=== PATIENT | male | born 1990 | race African-American/Black ===

== ENCOUNTER 2017-05-11 12:43 | Emergency (ER) | payer OTHER ==
--- NOTE | 2017-05-11 13:55 | ED NURSING NOTES ---
Clinical Report - Nurses [facility] [place] [address] 05/11/2017 12:49 Patient: BETTY LUTZ TRIAGE Triage time 12:52. Acuity: LEVEL 3. Chief Complaint: INJURY TO THE LEFT FOREARM. Alert. --13:05 Eliana Jiménez R.N. 12:55 05/11/17. BP: 129/75. HR: 94. RR: 18. O2 saturation: 95%. Temp: 99.3 F. Pain level now: 8/10. Additional comments: pain is 10/10 if moves arm. --13:05 Eliana Jiménez R.N. Weight: 95.2 kg stated. Height/Length: 67 inches Per Patient. BMI: 32.9. --12:58 Eliana Jiménez R.N. Medications None. --12:57 Eliana Jiménez R.N. Allergies Pollens. --12:57 Eliana Jiménez R.N. History Arrived by private vehicle. Historian: patient. Primary physician (none). ( Pt states that while he was playing soccer, someone hit their knee into his left forearm, and it is very painful to move at all). This occurred just prior to arrival and today. Occurred at an athletic field. Mechanism of injury: a blow. 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 SOCIAL HX: Never smoker. No alcohol use or drug use. LEARNING NEEDS ASSESSMENT: The learning needs assessment revealed no barriers. --13:05 Eliana Jiménez R.N. Interventions ID band on patient. To room. --13:05 Eliana Jiménez R.N. NURSING PROGRESS NOTES 13:11 05/11/17. Cold pack applied. Extremity elevated. Patient identifiers checked. Call light placed in reach. Bed placed in lowest position. --13:11 Eliana Jiménez R.N. 13:11 05/11/17. ( Pt has already been seen by the PA). --13:11 Eliana Jiménez R.N. 13:41 05/11/2017 Motrin PO Tablets 800 mg given. Allergies verified and confirmed 5 rights. --13:46 Michi Flores R.N. DISPOSITION / DISCHARGE Departure time: 14:10. --14:10 Eliana Jiménez R.N. 14:10 05/11/17. BP: 111/61. HR: 87. RR: 18. O2 saturation: 98%. Temp: deferred. Pain level now: 03/26. --14:11 Eliana Jiménez R.N. 14:10. Condition at departure: improved. No learning barriers present. Discharge instructions provided and reviewed with the patient and spouse. Reviewed medication(s) information. Prescription(s) given to the patient. Reviewed referral to family practice and an orthopedic surgeon for followup. Verbalized understanding. Written instructions provided. The patient was discharged home and accompanied by spouse. He left the Emergency Department ambulatory and via private vehicle. Spouse driving. --14:13 Eliana Jiménez R.N. late entry -. ( Sugar tong splint was applied by oil heat technician, [facility] intact. Arm sling placed on patient.). --18:40 Eliana Jiménez R.N. Locked/Released at 05/15/2017 18:40 by Eliana Jiménez R.N.
--- NOTE | 2017-05-11 13:55 | ED NURSING NOTES ---
Clinical Report - Nurses [facility] [place] [address] 05/11/2017 12:49 Patient: BETTY LUTZ TRIAGE Triage time 12:52. Acuity: LEVEL 3. Chief Complaint: INJURY TO THE LEFT FOREARM. Alert. --13:05 Eliana Jiménez R.N. 12:55 05/11/17. BP: 129/75. HR: 94. RR: 18. O2 saturation: 95%. Temp: 99.3 F. Pain level now: 8/10. Additional comments: pain is 10/10 if moves arm. --13:05 Eliana Jiménez R.N. Weight: 95.2 kg stated. Height/Length: 67 inches Per Patient. BMI: 32.9. --12:58 Eliana Jiménez R.N. Medications None. --12:57 Eliana Jiménez R.N. Allergies Pollens. --12:57 Eliana Jiménez R.N. History Arrived by private vehicle. Historian: patient. Primary physician (none). ( Pt states that while he was playing soccer, someone hit their knee into his left forearm, and it is very painful to move at all). This occurred just prior to arrival and today. Occurred at an athletic field. Mechanism of injury: a blow. 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 SOCIAL HX: Never smoker. No alcohol use or drug use. LEARNING NEEDS ASSESSMENT: The learning needs assessment revealed no barriers. --13:05 Eliana Jiménez R.N. Interventions ID band on patient. To room. --13:05 Eliana Jiménez R.N. NURSING PROGRESS NOTES 13:11 05/11/17. Cold pack applied. Extremity elevated. Patient identifiers checked. Call light placed in reach. Bed placed in lowest position. --13:11 Eliana Jiménez R.N. 13:11 05/11/17. ( Pt has already been seen by the PA). --13:11 Eliana Jiménez R.N. 13:41 05/11/2017 Motrin PO Tablets 800 mg given. Allergies verified and confirmed 5 rights. --13:46 Michi Flores R.N. DISPOSITION / DISCHARGE Departure time: 14:10. --14:10 Eliana Jiménez R.N. 14:10 05/11/17. BP: 111/61. HR: 87. RR: 18. O2 saturation: 98%. Temp: deferred. Pain level now: 03/26. --14:11 Eliana Jiménez R.N. 14:10. Condition at departure: improved. No learning barriers present. Discharge instructions provided and reviewed with the patient and spouse. Reviewed medication(s) information. Prescription(s) given to the patient. Reviewed referral to family practice and an orthopedic surgeon for followup. Verbalized understanding. Written instructions provided. The patient was discharged home and accompanied by spouse. He left the Emergency Department ambulatory and via private vehicle. Spouse driving. --14:13 Eliana Jiménez R.N. late entry -. ( Sugar tong splint was applied by video game repair technician, [facility] intact. Arm sling placed on patient.). --18:40 Eliana Jiménez R.N. Locked/Released at 05/15/2017 18:40 by Eliana Jiménez R.N.
--- NOTE | 2017-05-11 13:55 | ED ORDER SUMMARY ---
..... Patient: BETTY LUTZ OrderSheet [facility] VisitID: [id number] [address] [place] [address] 26y, M Registration Date/Time: 05/11/2017 ORDER SHEET Weight: 95.2 kg (stated) Allergies: Pollens GENERAL ORDERS: Forearm Left Urgent (13:06 05/11/2017 EKoroleva P.A.-C) (Ack 13:07 Janak) (13:26 LSullivan R.N.) Ice (13:09 05/11/2017 EKoroleva P.A.-C) (13:26 LSullivan R.N.) Splint (UE) (Left) (Sugar Tong) (13:40 05/11/2017 EKoroleva P.A.-C) (Ack 13:55 MWinterer R.N.) (18:39 LSullivan R.N.) MEDICATION ORDERS: Motrin PO 800 mg (NOW) (13:40 05/11/2017 EKoroleva P.A.-C) (13:46 JRomanelli R.N.) IV FLUIDS: ORDER SHEET NOTES: [Electronically signed by Haylee Patiño PJermanAJerman-C (14:01 05/11/2017)] [Electronically signed by Eliana Jiménez R.N. (18:40 05/15/2017)] [Electronically locked/signed by Eliana Jiménez R.N. (18:40 05/15/2017)]
--- NOTE | 2017-05-11 13:55 | ED CLINICAL REPORT ---
Clinical Report - Physicians/Mid Levels [facility] [address] [place] [place] [address] 05/11/2017 12:49 [id number] Time Seen: 13:07 May 11 2017. Arrived- By private vehicle. Historian- patient. HISTORY OF PRESENT ILLNESS Chief Complaint: Injury to left forearm. The injury happened just prior to arrival. Occurred at an athletic field. The patient sustained a direct blow. Patient is experiencing moderate pain. Patient denies injury to the head or neck. ( patient was playing sports, when he sustained a blow to his arm which was on his chest at that time, from a knee of another player. Denies any shortness of breath or abdominal pain currently. Patient is right-hand dominant. Denies any prior injury to the left forearm. Pain worsens with movement.). REVIEW OF SYSTEMS No tingling or skin laceration. All systems otherwise negative, except as recorded above. PAST HISTORY The patient's dominant hand is the right. He has not had a prior injury to the same area. SOCIAL HISTORY Never smoker. No alcohol use or drug use. PHYSICAL EXAM Appearance: Alert. Head: Head atraumatic. ENT: Ears normal. CVS: Normal heart rate and rhythm. Heart sounds normal. Respiratory: No respiratory distress. No respiratory distress. No decreased air movement, chest wall injury or accessory muscle use. Abdomen: No visible injury. Soft. No abdominal tenderness. The bowel sounds are not abnormal. Skin: Skin warm. Normal skin color. Extremities: Left elbow. No tenderness or laceration. Left forearm: mild tenderness and swelling located in the mid forearm. Neurovascular intact distally. No ecchymosis, foreign body or deformity. Left wrist. Neurovascular intact distally. No tenderness or laceration. Left hand. No erythema or tenderness. Neuro, Vascular and Tendons: Vascular status intact. Motor intact. Neuro: Oriented X 3. No motor deficit. PROGRESS AND PROCEDURES Splint Application: Time: 14:00 May 11 2017. Fiberglass sugar tong splint and sling applied to left forearm and arm. Splint applied by arina with direct supervision by me. Reassessed extremity following splint application. Neurovascular intact. Follow-up recommended within 5 days. Course of Care: Patient with good distal sensation and range of motion, no signs of compromise, no signs of open fracture. Patient given Motrin in the emergency department. Stable. Follow palpation. No other injuries abdomen soft non tender, no difficulty with breathing. 05/11/2017 12:55 BP: 129/75. HR: 94. RR: 18. O2 saturation: 95%. Temp: 99.3 F. Pain level now: 8/10. Patient is stable. Patient/family counseled. Disposition: Discharged. Condition: good. CLINICAL IMPRESSION Displaced transverse fracture of the left ulna INSTRUCTIONS Apply ice. Elevate affected areas above chest level. Prescription Medications: Hydrocodone/APAP 5mg / 325mg: take 1 orally every 6 hours as needed for pain. Dispense twelve (12). No refill. OTC Medications: Motrin IB 200 mg (available over the counter): take 4 orally every 8 hours for 5 days, as needed for pain Understanding of the discharge instructions verbalized by patient. Follow-up with: [facility], , [address], [facility], [id number] Follow up. Call for the next available appointment. (Electronically signed by Haylee Patiño P.A.-C 05/11/2017 14:01)
--- NOTE | 2017-05-11 13:55 | ED ORDER SUMMARY ---
..... Patient: BETTY LUTZ OrderSheet [facility] VisitID: [id number] [address] [place] [address] 26y, M Registration Date/Time: 05/11/2017 ORDER SHEET Weight: 95.2 kg (stated) Allergies: Pollens GENERAL ORDERS: Forearm Left Urgent (13:06 05/11/2017 EKoroleva P.A.-C) (Ack 13:07 Janak) (13:26 LSullivan R.N.) Ice (13:09 05/11/2017 EKoroleva P.A.-C) (13:26 LSullivan R.N.) Splint (UE) (Left) (Sugar Tong) (13:40 05/11/2017 EKoroleva P.A.-C) (Ack 13:55 MWinterer R.N.) (18:39 LSullivan R.N.) MEDICATION ORDERS: Motrin PO 800 mg (NOW) (13:40 05/11/2017 EKoroleva P.A.-C) (13:46 JRomanelli R.N.) IV FLUIDS: ORDER SHEET NOTES: [Electronically signed by Haylee Patiño PJermanAJerman-C (14:01 05/11/2017)] [Electronically signed by Eliana Jiménez R.N. (18:40 05/15/2017)] [Electronically locked/signed by Eliana Jiménez R.N. (18:40 05/15/2017)]
--- NOTE | 2017-05-11 13:55 | ED CLINICAL REPORT ---
Clinical Report - Physicians/Mid Levels [facility] [address] [place] [address] 05/11/2017 12:49 [id number] Time Seen: 13:07 May 11 2017. Arrived- By private vehicle. Historian- patient. HISTORY OF PRESENT ILLNESS Chief Complaint: Injury to left forearm. The injury happened just prior to arrival. Occurred at an athletic field. The patient sustained a direct blow. Patient is experiencing moderate pain. Patient denies injury to the head or neck. ( patient was playing sports, when he sustained a blow to his arm which was on his chest at that time, from a knee of another player. Denies any shortness of breath or abdominal pain currently. Patient is right-hand dominant. Denies any prior injury to the left forearm. Pain worsens with movement.). REVIEW OF SYSTEMS No tingling or skin laceration. All systems otherwise negative, except as recorded above. PAST HISTORY The patient's dominant hand is the right. He has not had a prior injury to the same area. SOCIAL HISTORY Never smoker. No alcohol use or drug use. PHYSICAL EXAM Appearance: Alert. Head: Head atraumatic. ENT: Ears normal. CVS: Normal heart rate and rhythm. Heart sounds normal. Respiratory: No respiratory distress. No respiratory distress. No decreased air movement, chest wall injury or accessory muscle use. Abdomen: No visible injury. Soft. No abdominal tenderness. The bowel sounds are not abnormal. Skin: Skin warm. Normal skin color. Extremities: Left elbow. No tenderness or laceration. Left forearm: mild tenderness and swelling located in the mid forearm. Neurovascular intact distally. No ecchymosis, foreign body or deformity. Left wrist. Neurovascular intact distally. No tenderness or laceration. Left hand. No erythema or tenderness. Neuro, Vascular and Tendons: Vascular status intact. Motor intact. Neuro: Oriented X 3. No motor deficit. PROGRESS AND PROCEDURES Splint Application: Time: 14:00 May 11 2017. Fiberglass sugar tong splint and sling applied to left forearm and arm. Splint applied by arina with direct supervision by me. Reassessed extremity following splint application. Neurovascular intact. Follow-up recommended within 5 days. Course of Care: Patient with good distal sensation and range of motion, no signs of compromise, no signs of open fracture. Patient given Motrin in the emergency department. Stable. Follow palpation. No other injuries abdomen soft non tender, no difficulty with breathing. 05/11/2017 12:55 BP: 129/75. HR: 94. RR: 18. O2 saturation: 95%. Temp: 99.3 F. Pain level now: 8/10. Patient is stable. Patient/family counseled. Disposition: Discharged. Condition: good. CLINICAL IMPRESSION Displaced transverse fracture of the left ulna INSTRUCTIONS Apply ice. Elevate affected areas above chest level. Prescription Medications: Hydrocodone/APAP 5mg / 325mg: take 1 orally every 6 hours as needed for pain. Dispense twelve (12). No refill. OTC Medications: Motrin IB 200 mg (available over the counter): take 4 orally every 8 hours for 5 days, as needed for pain Understanding of the discharge instructions verbalized by patient. Follow-up with: [facility], , [address], [facility], [id number] Follow up. Call for the next available appointment. (Electronically signed by Haylee Patiño P.A.-C 05/11/2017 14:01)
--- NOTE | 2017-05-11 15:44 | DIAGNOSTIC IMAGING REPORT ---
PROCEDURE: XR FOREARM - LEFT INDICATION: TRAUMA/INJURY TECHNIQUE: Two views of the left forearm COMPARISON: None. FINDINGS: Normal mineralization. Mildly comminuted, mildly displaced fracture of the mid to distal ulnar diaphysis. Distal fracture fragment is displaced by about one half shaft width towards the ventral aspect. The transverse alignment is normal. Elbow and wrist alignment appears grossly normal. Moderate overlying soft tissue swelling. No radiodense foreign bodies. IMPRESSION: 1. Mildly comminuted, mildly displaced mid to distal ulnar diaphyseal fracture.
--- NOTE | 2017-05-15 18:40 | ED DISCHARGE INSTRUCTIONS ---
Patient: BETTY LUTZ General Instructions [facility] VisitID: [id number] [address] [place] [address] 26y, M Registration Date/Time: 05/11/2017 Displaced transverse fracture of the left ulna INSTRUCTIONS Apply ice. Elevate affected areas above chest level. Prescription Medications: Hydrocodone/APAP 5mg / 325mg: take 1 orally every 6 hours as needed for pain. Dispense twelve (12). No refill. OTC Medications: Motrin IB 200 mg (available over the counter): take 4 orally every 8 hours for 5 days, as needed for pain Understanding of the discharge instructions verbalized by patient. Follow-up with: [facility], , [address], [place], [address] Follow up. Call for the next available appointment. ADDITIONAL INFORMATION Fracture: Forearm (Radius & Ulna) (No Reduction Needed) You have a break (fracture) of both bones in the forearm (radiusand ulna). The bones are not out of place and will not need to be set (reduced). This fracture usually takes 4-6 weeks to heal. Initial treatment is with a splint or cast. Home Care: Keep your arm elevated to reduce pain and swelling. When sitting or lying down elevate your arm above the level of your heart. You can do this by placing your arm on a pillow that rests on your chest or on a pillow at your side. This is most important during the first 48 hours after injury. Apply an ice pack (ice cubes in a plastic bag, wrapped in a towel) over the injured area for 20 minutes every 1-2 hours the first day. You can place the ice pack inside the sling and directly over the splint/cast. Continue with ice packs 3-4 times a day for the next two days, then as needed for the relief of pain and swelling. Keep the cast/splint completely dry at all times. Bathe with your cast/splint out of the water, protected with a large plastic bag, rubber-banded at the top end. If a fiberglass splint/cast gets wet, you can dry it with a hair-dryer. You may use acetaminophen (Tylenol) or ibuprofen (Motrin, Advil) to control pain, unless another pain medicine was prescribed. [NOTE: If you have chronic liver or kidney disease or ever had a stomach ulcer or GI bleeding, talk with your doctor before using these medicines.] Follow Up with your doctor in one week, or as advised by our staff, to be sure the bone is healing properly. If a splint was applied, it will be changed to a cast during your follow-up visit. [NOTE: If x-rays were taken, they will be reviewed by a radiologist. You will be notified if there are any new findings that may affect your care.] Get Prompt Medical Attention if any of the following occur: The plaster cast or splint becomes wet or soft The fiberglass cast or splint remains wet for more than 24 hours Increased tightness or pain under the cast or splint Fingers become swollen, cold, blue, numb or tingly Hydrocodone Bitartrate, Acetaminophen Oral tablet What is this medicine? ACETAMINOPHEN; HYDROCODONE (a set a MARIANO ronda fen; edi droe KOE done) is a pain reliever. It is used to treat mild to moderate pain. How should I use this medicine? Take this medicine by mouth. Swallow it with a full glass of water. Follow the directions on the prescription label. If the medicine upsets your stomach, take the medicine with food or milk. Do not take more than you are told to take. Talk to your hairspring assembler regarding the use of this medicine in children. This medicine is not approved for use in children. What side effects may I notice from receiving this medicine? Side effects that you should report to your doctor or health childbirth and infant care teacher as soon as possible: allergic reactions like skin rash, itching or hives, swelling of the face, lips, or tongue breathing problems confusion feeling faint or lightheaded, falls stomach pain yellowing of the eyes or skin Side effects that usually do not require medical attention (report to your doctor or health childbirth and infant care teacher if they continue or are bothersome): nausea, vomiting stomach upset What may interact with this medicine? alcohol antihistamines isoniazid medicines for depression, anxiety, or psychotic disturbances medicines for sleep muscle relaxants naltrexone narcotic medicines (opiates) for pain phenobarbital ritonavir tramadol What if I miss a dose? If you miss a dose, take it as soon as you can. If it is almost time for your next dose, take only that dose. Do not take double or extra doses. Where should I keep my medicine? Keep out of the reach of children. This medicine can be abused. Keep your medicine in a safe place to protect it from theft. Do not share this medicine with anyone. Selling or giving away this medicine is dangerous and against the law. Store at room temperature between 15 and 30 degrees C (59 and 86 degrees F). Protect from light. Keep container tightly closed. Throw away any unused medicine after the expiration date. Discard unused medicine and used packaging carefully. Pets and children can be harmed if they find used or lost packages. What should I tell my health care provider before I take this medicine? They need to know if you have any of these conditions: brain tumor Crohn's disease, inflammatory bowel disease, or ulcerative colitis drink more than 3 alcohol-containing drinks per day drug abuse or addiction head injury heart or circulation problems kidney disease or problems going to the bathroom liver disease lung disease, asthma, or breathing problems an unusual or allergic reaction to acetaminophen, hydrocodone, other opioid analgesics, other medicines, foods, dyes, or preservatives or trying to get breast-feeding What should I watch for while using this medicine? Tell your doctor or health childbirth and infant care teacher if your pain does not go away, if it gets worse, or if you have new or a different type of pain. You may develop tolerance to the medicine. Tolerance means that you will need a higher dose of the medicine for pain relief. Tolerance is normal and is expected if you take the medicine for a long time. Do not suddenly stop taking your medicine because you may develop a severe reaction. Your body becomes used to the medicine. This does NOT mean you are addicted. Addiction is a behavior related to getting and using a drug for a non-medical reason. If you have pain, you have a medical reason to take pain medicine. Your doctor will tell you how much medicine to take. If your doctor wants you to stop the medicine, the dose will be slowly lowered over time to avoid any side effects. You may get drowsy or dizzy when you first start taking the medicine or change doses. Do not drive, use machinery, or do anything that may be dangerous until you know how the medicine affects you. Stand or sit up slowly. There are different types of narcotic medicines (opiates) for pain. If you take more than one type at the same time, you may have more side effects. Give your health care provider a list of all medicines you use. Your doctor will tell you how much medicine to take. Do not take more medicine than directed. Call emergency for help if you have problems breathing. The medicine will cause constipation. Try to have a bowel movement at least every 2 to 3 days. If you do not have a bowel movement for 3 days, call your doctor or health childbirth and infant care teacher. Too much acetaminophen can be very dangerous. Do not take Tylenol (acetaminophen) or medicines that contain acetaminophen with this medicine. Many non-prescription medicines contain acetaminophen. Always read the labels carefully. Ibuprofen Oral tablet What is this medicine? IBUPROFEN (eye BYOO proe fen) is a non-steroidal anti-inflammatory drug (NSAID). It is used for dental pain, fever, headaches or migraines, osteoarthritis, rheumatoid arthritis, or painful monthly periods. It can also relieve minor aches and pains caused by a cold, flu, or sore throat. How should I use this medicine? Take this medicine by mouth with a glass of water. Follow the directions on the prescription label. Take this medicine with food if your stomach gets upset. Try to not lie down for at least 10 minutes after you take the medicine. Take your medicine at regular intervals. Do not take your medicine more often than directed. A special MedGuide will be given to you by the pharmacist with each prescription and refill. Be sure to read this information carefully each time. Talk to your hairspring assembler regarding the use of this medicine in children. Special care may be needed. What side effects may I notice from receiving this medicine? Side effects that you should report to your doctor or health childbirth and infant care teacher as soon as possible: allergic reactions like skin rash, itching or hives, swelling of the face, lips, or tongue black or bloody stools, blood in the urine or in vomit breathing problems changes in vision chest pain general ill feeling or flu-like symptoms nausea or vomiting redness, blistering, peeling or loosening of the skin, including inside the mouth slurred speech or weakness on one side of the body stomach pain unexplained weight gain or swelling unusually weak or tired yellowing of eyes or skin Side effects that usually do not require medical attention (report to your doctor or health childbirth and infant care teacher if they continue or are bothersome): constipation or diarrhea dizziness gas or heartburn stomach upset What may interact with this medicine? Do not take this medicine with any of the following medications: cidofovir ketorolac methotrexate pemetrexed This medicine may also interact with the following medications: alcohol aspirin diuretics lithium other drugs for inflammation like prednisone warfarin What if I miss a dose? If you miss a dose, take it as soon as you can. If it is almost time for your next dose, take only that dose. Do not take double or extra doses. Where should I keep my medicine? Keep out of the reach of children. Store at room temperature between 15 and 30 degrees C (59 and 86 degrees F). Keep container tightly closed. Throw away any unused medicine after the expiration date. What should I tell my health care provider before I take this medicine? They need to know if you have any of these conditions: asthma cigarette smoker drink more than 3 alcohol containing drinks a day heart disease or circulation problems such as heart failure or leg edema (fluid retention) high blood pressure kidney disease liver disease stomach bleeding or ulcers an unusual or allergic reaction to ibuprofen, aspirin, other NSAIDS, other medicines, foods, dyes, or preservatives or trying to get breast-feeding What should I watch for while using this medicine? Tell your doctor or healthcare professional if your symptoms do not start to get better or if they get worse. This medicine does not prevent heart attack or stroke. In fact, this medicine may increase the chance of a heart attack or stroke. The chance may increase with longer use of this medicine and in people who have heart disease. If you take aspirin to prevent heart attack or stroke, talk with your doctor or health childbirth and infant care teacher. Do not take other medicines that contain aspirin, ibuprofen, or naproxen with this medicine. Side effects such as stomach upset, nausea, or ulcers may be more likely to occur. Many medicines available without a prescription should not be taken with this medicine. This medicine can cause ulcers and bleeding in the stomach and intestines at any time during treatment. Ulcers and bleeding can happen without warning symptoms and can cause . To reduce your risk, do not smoke cigarettes or drink alcohol while you are taking this medicine. You may get drowsy or dizzy. Do not drive, use machinery, or do anything that needs mental alertness until you know how this medicine affects you. Do not stand or sit up quickly, especially if you are an older patient. This reduces the risk of dizzy or fainting spells. This medicine can cause you to bleed more easily. Try to avoid damage to your teeth and gums when you brush or floss your teeth. You have been given the following additional information: Radius And Ulna Fx, No Reduction Required Hydrocodone Bitartrate, Acetaminophen Oral tablet Ibuprofen Oral tablet (Electronically signed by Haylee Patiño P.A.-C 05/11/2017 14:01)
--- NOTE | 2017-05-15 18:40 | ED DISCHARGE INSTRUCTIONS ---
Patient: BETTY LUTZ General Instructions [facility] VisitID: [id number] [address] [place] [address] 26y, M Registration Date/Time: 05/11/2017 Displaced transverse fracture of the left ulna INSTRUCTIONS Apply ice. Elevate affected areas above chest level. Prescription Medications: Hydrocodone/APAP 5mg / 325mg: take 1 orally every 6 hours as needed for pain. Dispense twelve (12). No refill. OTC Medications: Motrin IB 200 mg (available over the counter): take 4 orally every 8 hours for 5 days, as needed for pain Understanding of the discharge instructions verbalized by patient. Follow-up with: [facility], , [address], [place], [id number] Follow up. Call for the next available appointment. ADDITIONAL INFORMATION Fracture: Forearm (Radius & Ulna) (No Reduction Needed) You have a break (fracture) of both bones in the forearm (radiusand ulna). The bones are not out of place and will not need to be set (reduced). This fracture usually takes 4-6 weeks to heal. Initial treatment is with a splint or cast. Home Care: Keep your arm elevated to reduce pain and swelling. When sitting or lying down elevate your arm above the level of your heart. You can do this by placing your arm on a pillow that rests on your chest or on a pillow at your side. This is most important during the first 48 hours after injury. Apply an ice pack (ice cubes in a plastic bag, wrapped in a towel) over the injured area for 20 minutes every 1-2 hours the first day. You can place the ice pack inside the sling and directly over the splint/cast. Continue with ice packs 3-4 times a day for the next two days, then as needed for the relief of pain and swelling. Keep the cast/splint completely dry at all times. Bathe with your cast/splint out of the water, protected with a large plastic bag, rubber-banded at the top end. If a fiberglass splint/cast gets wet, you can dry it with a hair-dryer. You may use acetaminophen (Tylenol) or ibuprofen (Motrin, Advil) to control pain, unless another pain medicine was prescribed. [NOTE: If you have chronic liver or kidney disease or ever had a stomach ulcer or GI bleeding, talk with your doctor before using these medicines.] Follow Up with your doctor in one week, or as advised by our staff, to be sure the bone is healing properly. If a splint was applied, it will be changed to a cast during your follow-up visit. [NOTE: If x-rays were taken, they will be reviewed by a radiologist. You will be notified if there are any new findings that may affect your care.] Get Prompt Medical Attention if any of the following occur: The plaster cast or splint becomes wet or soft The fiberglass cast or splint remains wet for more than 24 hours Increased tightness or pain under the cast or splint Fingers become swollen, cold, blue, numb or tingly Hydrocodone Bitartrate, Acetaminophen Oral tablet What is this medicine? ACETAMINOPHEN; HYDROCODONE (a set a MARIANO ronda fen; edi droe KOE done) is a pain reliever. It is used to treat mild to moderate pain. How should I use this medicine? Take this medicine by mouth. Swallow it with a full glass of water. Follow the directions on the prescription label. If the medicine upsets your stomach, take the medicine with food or milk. Do not take more than you are told to take. Talk to your city routeman regarding the use of this medicine in children. This medicine is not approved for use in children. What side effects may I notice from receiving this medicine? Side effects that you should report to your doctor or health child care giver as soon as possible: allergic reactions like skin rash, itching or hives, swelling of the face, lips, or tongue breathing problems confusion feeling faint or lightheaded, falls stomach pain yellowing of the eyes or skin Side effects that usually do not require medical attention (report to your doctor or health child care giver if they continue or are bothersome): nausea, vomiting stomach upset What may interact with this medicine? alcohol antihistamines isoniazid medicines for depression, anxiety, or psychotic disturbances medicines for sleep muscle relaxants naltrexone narcotic medicines (opiates) for pain phenobarbital ritonavir tramadol What if I miss a dose? If you miss a dose, take it as soon as you can. If it is almost time for your next dose, take only that dose. Do not take double or extra doses. Where should I keep my medicine? Keep out of the reach of children. This medicine can be abused. Keep your medicine in a safe place to protect it from theft. Do not share this medicine with anyone. Selling or giving away this medicine is dangerous and against the law. Store at room temperature between 15 and 30 degrees C (59 and 86 degrees F). Protect from light. Keep container tightly closed. Throw away any unused medicine after the expiration date. Discard unused medicine and used packaging carefully. Pets and children can be harmed if they find used or lost packages. What should I tell my health care provider before I take this medicine? They need to know if you have any of these conditions: brain tumor Crohn's disease, inflammatory bowel disease, or ulcerative colitis drink more than 3 alcohol-containing drinks per day drug abuse or addiction head injury heart or circulation problems kidney disease or problems going to the bathroom liver disease lung disease, asthma, or breathing problems an unusual or allergic reaction to acetaminophen, hydrocodone, other opioid analgesics, other medicines, foods, dyes, or preservatives or trying to get breast-feeding What should I watch for while using this medicine? Tell your doctor or health child care giver if your pain does not go away, if it gets worse, or if you have new or a different type of pain. You may develop tolerance to the medicine. Tolerance means that you will need a higher dose of the medicine for pain relief. Tolerance is normal and is expected if you take the medicine for a long time. Do not suddenly stop taking your medicine because you may develop a severe reaction. Your body becomes used to the medicine. This does NOT mean you are addicted. Addiction is a behavior related to getting and using a drug for a non-medical reason. If you have pain, you have a medical reason to take pain medicine. Your doctor will tell you how much medicine to take. If your doctor wants you to stop the medicine, the dose will be slowly lowered over time to avoid any side effects. You may get drowsy or dizzy when you first start taking the medicine or change doses. Do not drive, use machinery, or do anything that may be dangerous until you know how the medicine affects you. Stand or sit up slowly. There are different types of narcotic medicines (opiates) for pain. If you take more than one type at the same time, you may have more side effects. Give your health care provider a list of all medicines you use. Your doctor will tell you how much medicine to take. Do not take more medicine than directed. Call emergency for help if you have problems breathing. The medicine will cause constipation. Try to have a bowel movement at least every 2 to 3 days. If you do not have a bowel movement for 3 days, call your doctor or health child care giver. Too much acetaminophen can be very dangerous. Do not take Tylenol (acetaminophen) or medicines that contain acetaminophen with this medicine. Many non-prescription medicines contain acetaminophen. Always read the labels carefully. Ibuprofen Oral tablet What is this medicine? IBUPROFEN (eye BYOO proe fen) is a non-steroidal anti-inflammatory drug (NSAID). It is used for dental pain, fever, headaches or migraines, osteoarthritis, rheumatoid arthritis, or painful monthly periods. It can also relieve minor aches and pains caused by a cold, flu, or sore throat. How should I use this medicine? Take this medicine by mouth with a glass of water. Follow the directions on the prescription label. Take this medicine with food if your stomach gets upset. Try to not lie down for at least 10 minutes after you take the medicine. Take your medicine at regular intervals. Do not take your medicine more often than directed. A special MedGuide will be given to you by the pharmacist with each prescription and refill. Be sure to read this information carefully each time. Talk to your city routeman regarding the use of this medicine in children. Special care may be needed. What side effects may I notice from receiving this medicine? Side effects that you should report to your doctor or health child care giver as soon as possible: allergic reactions like skin rash, itching or hives, swelling of the face, lips, or tongue black or bloody stools, blood in the urine or in vomit breathing problems changes in vision chest pain general ill feeling or flu-like symptoms nausea or vomiting redness, blistering, peeling or loosening of the skin, including inside the mouth slurred speech or weakness on one side of the body stomach pain unexplained weight gain or swelling unusually weak or tired yellowing of eyes or skin Side effects that usually do not require medical attention (report to your doctor or health child care giver if they continue or are bothersome): constipation or diarrhea dizziness gas or heartburn stomach upset What may interact with this medicine? Do not take this medicine with any of the following medications: cidofovir ketorolac methotrexate pemetrexed This medicine may also interact with the following medications: alcohol aspirin diuretics lithium other drugs for inflammation like prednisone warfarin What if I miss a dose? If you miss a dose, take it as soon as you can. If it is almost time for your next dose, take only that dose. Do not take double or extra doses. Where should I keep my medicine? Keep out of the reach of children. Store at room temperature between 15 and 30 degrees C (59 and 86 degrees F). Keep container tightly closed. Throw away any unused medicine after the expiration date. What should I tell my health care provider before I take this medicine? They need to know if you have any of these conditions: asthma cigarette smoker drink more than 3 alcohol containing drinks a day heart disease or circulation problems such as heart failure or leg edema (fluid retention) high blood pressure kidney disease liver disease stomach bleeding or ulcers an unusual or allergic reaction to ibuprofen, aspirin, other NSAIDS, other medicines, foods, dyes, or preservatives or trying to get breast-feeding What should I watch for while using this medicine? Tell your doctor or healthcare professional if your symptoms do not start to get better or if they get worse. This medicine does not prevent heart attack or stroke. In fact, this medicine may increase the chance of a heart attack or stroke. The chance may increase with longer use of this medicine and in people who have heart disease. If you take aspirin to prevent heart attack or stroke, talk with your doctor or health child care giver. Do not take other medicines that contain aspirin, ibuprofen, or naproxen with this medicine. Side effects such as stomach upset, nausea, or ulcers may be more likely to occur. Many medicines available without a prescription should not be taken with this medicine. This medicine can cause ulcers and bleeding in the stomach and intestines at any time during treatment. Ulcers and bleeding can happen without warning symptoms and can cause . To reduce your risk, do not smoke cigarettes or drink alcohol while you are taking this medicine. You may get drowsy or dizzy. Do not drive, use machinery, or do anything that needs mental alertness until you know how this medicine affects you. Do not stand or sit up quickly, especially if you are an older patient. This reduces the risk of dizzy or fainting spells. This medicine can cause you to bleed more easily. Try to avoid damage to your teeth and gums when you brush or floss your teeth. You have been given the following additional information: Radius And Ulna Fx, No Reduction Required Hydrocodone Bitartrate, Acetaminophen Oral tablet Ibuprofen Oral tablet (Electronically signed by Haylee Patiño P.A.-C 05/11/2017 14:01)
--- NOTE | 2017-05-15 18:41 | ED MED RECONCILIATION SUMMARY ---
Patient: BETTY LUTZ Medication Reconciliation Report [facility] VisitID: [id number] [address] [place] [address] 26y, M Registration Date/Time: 05/11/2017 Weight: 95.2 kg Height/Length: 67 in. BMI: 32.9 ALLERGIES: Pollens The patient's Home Medications are listed below: NONE. The source(s) of the original Home Medication information: Not obtained. The following Medications were given to the patient in the Emergency Department: Motrin [PO] PO 800 mg, administered: 05/11/2017 1:41:00 PM The following Medications were prescribed to the patient: Motrin IB 200 mg (available over the counter): take 4 orally every 8 hours for 5 days, as needed for pain -- Haylee Patiño, P.A.-C Hydrocodone/APAP 5mg / 325mg: take 1 orally every 6 hours as needed for pain. Dispense twelve (12). No refill. -- Haylee Patiño, P.A.-C
--- NOTE | 2017-05-15 18:41 | ED MAR SUMMARY ---
..... Medication Administration Record [facility] [address] [place] [address] Patient: BETTY LUTZ Visit ID: [id number] 26y, M Weight: 95.2 kg Height/Length: 67 in BMI: 32.9 ALLERGIES: Pollens Given 13:41 05/11/2017 Michi Flores R.N. Medication Administered: MOTRIN [PO], Dose: 800 mg Tablets PO. Medication Ordered: Motrin PO 800 mg (NOW).
--- NOTE | 2017-05-15 18:41 | ED MAR SUMMARY ---
..... Medication Administration Record [facility] [address] [place] [address] Patient: BETTY LUTZ Visit ID: [id number] 26y, M Weight: 95.2 kg Height/Length: 67 in BMI: 32.9 ALLERGIES: Pollens Given 13:41 05/11/2017 Michi Flores R.N. Medication Administered: MOTRIN [PO], Dose: 800 mg Tablets PO. Medication Ordered: Motrin PO 800 mg (NOW).
--- NOTE | 2017-05-15 18:41 | ED MED RECONCILIATION SUMMARY ---
Patient: BETTY LUTZ Medication Reconciliation Report [facility] VisitID: [id number] [address] [place] [address] 26y, M Registration Date/Time: 05/11/2017 Weight: 95.2 kg Height/Length: 67 in. BMI: 32.9 ALLERGIES: Pollens The patient's Home Medications are listed below: NONE. The source(s) of the original Home Medication information: Not obtained. The following Medications were given to the patient in the Emergency Department: Motrin [PO] PO 800 mg, administered: 05/11/2017 1:41:00 PM The following Medications were prescribed to the patient: Motrin IB 200 mg (available over the counter): take 4 orally every 8 hours for 5 days, as needed for pain -- Haylee Patiño, P.A.-C Hydrocodone/APAP 5mg / 325mg: take 1 orally every 6 hours as needed for pain. Dispense twelve (12). No refill. -- Haylee Patiño, P.A.-C
== END 2017-05-11 14:10 | disposition home or self-care (01) ==
LOC: ED SRH 12:43
DX: S52.222A Displaced transverse fracture of shaft of left ulna, initial encounter for closed fracture (principal); W51.XXXA Accidental striking against or bumped into by another person, initial encounter; Y93.66 Activity, soccer; Y92.322 Soccer field as the place of occurrence of the external cause; Z91.048 Other nonmedicinal substance allergy status